=== PATIENT | male | born 1940 | race Two or more races ===

== ENCOUNTER 2019-08-04 12:38 | Emergency (ER) | payer MEDICARE ==
[~2019-08-04] VITALS: Ht 165.1 cm; Wt 73.0 kg
[2019-08-04] MEDS ORDERED: ACETAMINOPHEN ES 500 MG TABLET ONE (13:27)
[2019-08-04] MEDS ORDERED: ACETAMINOPHEN ES 500 MG TABLET PO ONE (13:30)
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
[2019-08-04 14:17] LABS: BASOPHILS % (AUTO) 0.5 % (0.0-2.0); EOSINOPHILS % (AUTO) 0.3 % (0.0-6.0); HEMATOCRIT 43 % (39-51); LYMPHOCYTES # (AUTO) 0.7 /CMM (0.8-4.8); LYMPHOCYTES % (AUTO) 9.2 % (20.0-44.0); MEAN CORPUSCULAR HGB CONC 35 g/dl (31.0-36.0); MEAN CORPUSCULAR VOLUME 95 fL (80-96); MONOCYTES # (AUTO) 0.4 /CMM (0.1-1.30); MONOCYTES % (AUTO) 5.9 % (2.0-12.0); NEUTROPHILS # (AUTO) 6.2 /CMM (1.8-8.9); NEUTROPHILS % (AUTO) 84.1 % (43.0-81.0); PLATELET COUNT (AUTO) 203 /CMM (150-450); RED BLOOD CELL COUNT(AUTO) 4.49 MIL/uL (4.5-6.0); WHITE BLOOD COUNT (AUTO) 7.3 K/uL (4.3-11.0)
[2019-08-04 14:24] LABS: CALCIUM, SERUM 8.5 mg/dL (8.5-10.1); CREATININE 0.8 mg/dL (0.6-1.3); POTASSIUM 4.1 mmol/L (3.5-5.1)
[2019-08-04] MEDS ORDERED: IOHEXOL-350 100 ML VIAL IV ONE (14:48)
[2019-08-04] MEDS ORDERED: IV NS 0.9% 250 ML IV ONE (14:48)
[2019-08-04] MEDS ORDERED: CT SWABBABLE VALVE TRANS SET 1 EA INFUS.SET MC ONE (14:48)
--- NOTE | 2019-08-04 15:50 | NUR ---
CALLED REBEKA FROM [facility] TO TX PATIENT. FAXED OVER CLINICALS @ .
[2019-08-04] MEDS ORDERED: HYDROCODONE/APAP 5/325MG 1 EACH TABLET PO ONE (16:00)
--- NOTE | 2019-08-04 16:14 | NUR ---
REBEKA FROM [facility] CALLED BACK STATING THE DONT HAVE ANY AVAILABLE ICU BEDS, AND CANT ACCEPT THE PATIENT AT THIS TIME.
[2019-08-04] MEDS ORDERED: HYDROCODONE/APAP 5/325MG 1 EACH TABLET ONE (16:38)
--- NOTE | 2019-08-04 16:41 | NUR ---
MEDICATED FOR PAIN PER ERMD ORDER, PT PEPITO WELL.
--- NOTE | 2019-08-04 16:45 | NUR ---
CALLED [facility] SPOKE WITH REBEKA TO REQUEST TX. SHE WILL HAVE THE TRAUMA SURGEON CALL US BACK.
--- NOTE | 2019-08-04 17:22 | NUR ---
PT SIGNED AMA FORM. DR. POP EXPLAINED RISK & CONSEQUENCES ON LEAVING AMA. PT ACKNOWLEDGED WITH VERBAL UNDERSTANDING. IV removed. Catheter intact and site benign. Pressure and 4x4 applied to site. No bleeding noted.
[2019-08-04 17:26] VITALS: BP 157/95
== END 2019-08-04 17:27 | disposition left against medical advice (07) ==
LOC: ER 12:39
DX: S42.001A Fracture of unspecified part of right clavicle, initial encounter for closed fracture (principal); S22.41XA Multiple fractures of ribs, right side, initial encounter for closed fracture; S22.058A Other fracture of T5-T6 vertebra, initial encounter for closed fracture; S22.068A Other fracture of T7-T8 thoracic vertebra, initial encounter for closed fracture; S27.332A Laceration of lung, bilateral, initial encounter; S00.03XA Contusion of scalp, initial encounter; S50.11XA Contusion of right forearm, initial encounter; J94.2 Hemothorax; J98.4 Other disorders of lung; J93.83 Other pneumothorax; I10 Essential (primary) hypertension; E78.00 Pure hypercholesterolemia, unspecified; Z85.46 Personal history of malignant neoplasm of prostate; W01.198A Fall on same level from slipping, tripping and stumbling with subsequent striking against other object, initial encounter; Y93.89 Activity, other specified; Y92.89 Other specified places as the place of occurrence of the external cause; Y99.8 Other external cause status
CPT/HCPCS: 36415; 70450; 71045; 71275; 72125; 73030; 80048; 85025; 85730; 99284; J7050; Q9967